=== PATIENT | female | born 1985 | race Caucasian/White ===

== ENCOUNTER 2016-06-01 06:44 | Emergency (ER) | payer BC ==
[2016-06-01] MEDS ORDERED: Ondansetron INJ* 2 MG/ML VIAL IV ONE (07:04)
--- NOTE | 2016-06-01 07:08 | ED ---
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 states vomitimg has slowed down but nausea persists. Severity: Severe Current Severity: Moderate Pain Intensity: 3 Associated Signs and Symptoms: Positive: Nausea, Vomiting, Diarrhea. Negative: Dizziness, Blood w/Stool, Fever Additional Signs & Symptoms: Positive: Other: - body aches Aggravating Factor(s): Food, Movement Alleviating Factor(s): Nothing, Position - better with HOB elevated - Allergy/Home Medications Allergies/Adverse Reactions: Allergies Allergy/AdvReac Type Severity Reaction Status Date / Time No Known Allergies Allergy Verified 06/01/16 06:51 PMH/Surg Hx/FS Hx/Imm Hx Previously Healthy: Yes Endocrine/Hematology History: Denies: Hx Blood Disorders Cardiovascular History: Denies: Hx Hypotension, Hx Hypertension Respiratory History: Denies: Hx Asthma GI History: Reports: Hx Gastroesophageal Reflux Disease Neurological History: Denies: Hx Headaches Psychiatric History: Denies: Hx Anxiety, Hx Depression Infectious Disease History: No Infectious Disease History: Denies: Traveled Outside the [place] in Last 30 Days - Family History Known Family History: Positive: None - Social History 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 Negative: Fever, Chills Eyes: Negative ENT: Negative Negative: Sore Throat Cardiovascular: Negative Negative: Chest Pain Respiratory: Negative Negative: Shortness Of Breath, Cough Positive: Vomiting, Diarrhea, Nausea. Negative: Abdominal Pain Genitourinary: Negative Musculoskeletal: Negative Skin: Negative Negative: Rash Neurological: Negative Negative: Headache Psychological: Normal All Other Systems Reviewed And Are Negative: Yes Physical Exam Triage Information Reviewed: Yes Vital Signs On Initial Exam: Initial Vitals Temp Pulse Resp BP Pulse Ox 98.8 F 108 20 143/68 99 06/01/16 06:48 06/01/16 06:48 06/01/16 06:48 06/01/16 06:48 06/01/16 06:48 Vital Signs Reviewed: Yes Appearance: Positive: Well-Appearing, Well-Nourished Skin: Positive: Warm, Skin Color Reflects Adequate Perfusion, Dry Respiratory/Lung Sounds: Positive: Clear to Auscultation Cardiovascular: Positive: Normal, RRR, Pulses are Symmetrical in both Upper and Lower Extremities Abdomen Description: Positive: Nontender, No Organomegaly, Soft Bowel Sounds: Positive: Present Neurological: Positive: Normal, Sensory/Motor Intact, Alert, Oriented to Person Place, Time Psychiatric: Positive: Normal Diagnostics - Vital Signs Vital Signs Temp Pulse Resp BP Pulse Ox 06/01/16 06:48 98.8 F 108 20 143/68 99 - Laboratory Lab Statement: Any lab studies that have been ordered have been reviewed, and results considered in the medical decision making process. Re-Evaluation - Re-Evaluation First Eval Change: Improved - no longer nausous, is eating and retaining clear liquids GIGU Course/Dx - Diagnoses Differential Diagnoses - Female: Dehydration, , Peptic Ulcer Disease - gastroenteritis Provider Diagnoses: Gastroenteritis Discharge - Discharge Plan Condition: Improved Disposition: HOME Prescriptions: Ondansetron ODT TAB* [Zofran Odt TAB*] 4 mg PO Q6H PRN #12 tab.odt PRN Reason: Nausea Patient Education Materials: Gastroenteritis (ED) Referrals: Yon Zaragoza MD [Primary Care Provider] - 2 Days (recheck in 2 days if no better) Additional Instructions: stay on clear liquid diet for 24h then advance diet to bland foods and gradually to regular diet use zofran as prescribed for nausea/vomiting return to ER if your symptoms worsen
[2016-06-01] MEDS ORDERED: NS 0.9% 1000 ML* 1,000 ML BOLUS SCH (07:15)
[2016-06-01 08:53] VITALS: BP 114/59
== END 2016-06-01 08:55 | disposition home or self-care (01) ==
LOC: ED 06:44
DX: K52.9 Noninfective gastroenteritis and colitis, unspecified (principal); R11.2 Nausea with vomiting, unspecified; R19.7 Diarrhea, unspecified; R53.83 Other fatigue
CPT/HCPCS: 96374; 99282; J2405

== ENCOUNTER 2017-03-16 16:03 | Emergency (ER) | payer BC ==
[2017-03-16 16:18] VITALS: BP 126/76
--- NOTE | 2017-03-16 16:25 | UC ---
Throat Pain/Nasal Jad HPI - HPI Summary HPI Summary: over 2 weeks of sinus congestion cough with green sputum - History of Current Complaint Chief Complaint: UCGeneralIllness Stated Complaint: SINUS PAIN,CONGESTION,COUGH Time Seen by Provider: 03/16/17 16:17 Hx Obtained From: Patient Hx Last Menstrual Period: 02/22/17 ?: No Onset/Duration: Gradual Onset, Lasting Weeks - 2 Severity: Moderate Pain Intensity: 7 Pain Scale Used: 0-10 Numeric Cough: Productive Associated Signs & Symptoms: Positive: Sinus Discomfort, Nasal Discharge - Allergies/Home Medications Allergies/Adverse Reactions: Allergies Allergy/AdvReac Type Severity Reaction Status Date / Time No Known Allergies Allergy Verified 03/16/17 16:08 Home Medications: Home Medications Control 03/16/17 [History] Sertraline HCl [Zoloft] 25 mg PO DAILY 03/16/17 [History Confirmed 03/16/17] PMH/Surg Hx/FS Hx/Imm Hx Previously Healthy: Yes Psychological History: Anxiety - Surgical History Surgical History: Yes Surgery Procedure, Year, and Place: eye surgery - Family History Known Family History: Positive: None - Social History Occupation: Employed Full-time Lives: Dormitory/Roommates Alcohol Use: Occasionally Substance Use Type: None Smoking Status (MU): Never Smoked Tobacco Review of Systems Constitutional: Negative Skin: Negative Eyes: Negative ENT: Nasal Discharge, Sinus Congestion, Sinus Pain/Tenderness Respiratory: Cough Cardiovascular: Negative Gastrointestinal: Negative Genitourinary: Negative Motor: Negative Neurovascular: Negative Musculoskeletal: Negative Neurological: Negative Psychological: Negative Is Patient Immunocompromised?: No All Other Systems Reviewed And Are Negative: Yes Physical Exam Triage Information Reviewed: Yes Appearance: Well-Appearing, No Pain Distress, Well-Nourished Vital Signs: Initial Vital Signs Temp 99.1 F 03/16/17 16:11 Pulse 86 03/16/17 16:11 Resp 16 03/16/17 16:11 BP 126/76 03/16/17 16:11 Pulse Ox 100 03/16/17 16:11 Vital Signs Reviewed: Yes Eye Exam: Normal Eyes: Positive: Conjunctiva Clear ENT Exam: Normal ENT: Positive: Normal ENT inspection, Hearing grossly normal, Pharynx normal, Nasal congestion, Nasal drainage, Sinus tenderness, Uvula midline. Negative: Tonsillar swelling, Tonsillar exudate, Trismus, Hoarse voice, Dental tenderness Dental Exam: Normal Neck exam: Normal Neck: Positive: Supple, Nontender, No Lymphadenopathy Respiratory Exam: Normal Respiratory: Positive: Chest non-tender, Lungs clear, Normal breath sounds, No respiratory distress, No accessory muscle use Cardiovascular Exam: Normal Cardiovascular: Positive: RRR, No Murmur, Pulses Normal, Brisk Capillary Refill Musculoskeletal Exam: Normal Musculoskeletal: Positive: Strength Intact, ROM Intact, No Edema Neurological Exam: Normal Neurological: Positive: Alert, Muscle Tone Normal Psychological Exam: Normal Skin Exam: Normal Throat Pain/Nasal Course/Dx - Course Assessment/Plan: Augmentin, Flonase increase fluids follow with pcp - Differential Dx/Diagnosis Provider Diagnoses: Sinusitis Discharge - Discharge Plan Condition: Stable Disposition: HOME Prescriptions: Amoxicillin/Clavulanate TAB* [Augmentin TAB 875*] 875 mg PO BID #20 tab Fluticasone NASAL SPRAY 50MCG* [Flonase NASAL SPRAY 50MCG*] 2 spray BOTH NARES DAILY #1 btl Patient Education Materials: Sinusitis (ED), How to Use Nasal [place] (ED) Referrals: Yon Zaragoza MD [Primary Care Provider] - If Needed
== END 2017-03-16 16:38 | disposition home or self-care (01) ==
LOC: UCEAST 16:03
DX: J32.9 Chronic sinusitis, unspecified (principal)
CPT/HCPCS: 99212; G0463

== ENCOUNTER 2017-06-07 17:29 | Emergency (ER) | payer BC ==
[2017-06-07 17:43] VITALS: BP 126/71
--- NOTE | 2017-06-07 19:17 | UC ---
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 Severity Initially: Mild Severity Currently: Moderate Pain Intensity: 0 Character: Cough: Nonproductive Associated Signs And Symptoms: Positive: Fever, Chills, URI, Nasal Congestion - Allergies/Home Medications Allergies/Adverse Reactions: Allergies Allergy/AdvReac Type Severity Reaction Status Date / Time No Known Allergies Allergy Verified 06/07/17 17:43 Home Medications: Home Medications Ferrous Sulfate [Iron] 1 tab PO DAILY 06/07/17 [History Confirmed 06/07/17] Norgestimate-Ethinyl Estradiol [Trinessa Tablet] 1 tab PO DAILY 06/07/17 [ History Confirmed 06/07/17] PMH/Surg Hx/FS Hx/Imm Hx Previously Healthy: Yes Psychological History: Depression - Surgical History Surgical History: Yes Surgery Procedure, Year, and Place: eye surgery - Family History Known Family History: Positive: None - Social History 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 Lives: With Family Alcohol Use: Occasionally Substance Use Type: None Smoking Status (MU): Never Smoked Tobacco Review of Systems Constitutional: Fever, Chills, Fatigue Skin: Negative Eyes: Negative ENT: Sore Throat, Sinus Congestion Respiratory: Cough Cardiovascular: Negative Gastrointestinal: Negative Neurological: Negative Psychological: Negative Is Patient Immunocompromised?: No All Other Systems Reviewed And Are Negative: Yes Physical Exam Triage Information Reviewed: Yes Appearance: Well-Appearing, No Pain Distress, Well-Nourished Vital Signs: Initial Vital Signs Temp 97.9 F 06/07/17 17:40 Pulse 76 06/07/17 17:40 Resp 18 06/07/17 17:40 BP 126/71 06/07/17 17:40 Pulse Ox 98 06/07/17 17:40 Vital Signs Reviewed: Yes Eyes: Positive: Conjunctiva Clear ENT: Positive: Pharyngeal erythema, Nasal congestion Neck: Positive: No Lymphadenopathy Respiratory: Positive: Lungs clear, Other: - harsh dry cough Cardiovascular Exam: Normal Cardiovascular: Positive: RRR Neurological Exam: Normal Psychological Exam: Normal Skin Exam: Normal UC Diagnostic Evaluation - Laboratory O2 Sat by Pulse Oximetry: 98 Respiratory Course/Dx - Differential Dx/Diagnosis Differential Diagnosis/HQI/PQRI: Bronchitis, Influenza, Sinusitis Provider Diagnoses: URI Discharge - Discharge Plan Condition: Stable Disposition: HOME Prescriptions: Azithromycin TAB* [Zithromax TAB (Z-EZRA) 250 mg #6 tabs] 2 tab PO .TODAY, THEN 1 DAILY #1 ezra Patient Education Materials: Upper Respiratory Infection (ED) Referrals: Yon Zaragoza MD [Primary Care Provider] - 2 Days (if no better) Additional Instructions: drink plenty of fluids Take z-ezra if cough no better in 24-48h use DayQuil and Nyquil as directed for cold symps
== END 2017-06-07 19:30 | disposition home or self-care (01) ==
LOC: UCEAST 17:29
DX: J06.9 Acute upper respiratory infection, unspecified (principal); F32.9 Major depressive disorder, single episode, unspecified
CPT/HCPCS: 87502; 87651; 99212; G0463

== ENCOUNTER 2018-01-29 07:06 | Emergency (ER) | payer BC ==
[2018-01-29 07:17] VITALS: BP 138/81
--- NOTE | 2018-01-29 07:37 | UC ---
Skin Complaint HPI - HPI Summary HPI Summary: Patient is a 33 y/o female who presents to the c/o pruritus. 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 Patient states the student was diagnosed with scabies. Last night her arms, legs, and back began to itch. Patient denies any srivastava, except for one small red bump on her foot. She is aware that her symptoms may be due to paranoia and dry skin, and not scabies but wanted to get checked. Patient has a dog at home, but states the dog has not been scratching itself and denies the possibility of fleas. Nobody else in the patients home has been itching themselves. pt without other complaints. No new products. no known allergies. denies Patients medication reviewed this visit. - History of Current Complaint Chief Complaint: UCSkin Time Seen by Provider: 01/29/18 07:22 Stated Complaint: EXPOSED TO SCABIES Hx Obtained From: Patient Hx Last Menstrual Period: 01/17/18 ?: No Onset/Duration: Sudden Onset, Lasting Hours - Last night, Still Present Skin Exposure Onset/Duration: Days Ago - Exposed to scabies for about 1 month Timing: Constant Current Severity: None Pain Intensity: 0 Pain Scale Used: 0-10 Numeric Location: Discrete - Arms, legs, back Character: Pruritus Aggravating Factor(s): Nothing Alleviating Factor(s): Nothing Associated Signs & Symptoms: Positive: Negative Related History: Other: - Possible scabies exposure - Allergy/Home Medications Allergies/Adverse Reactions: Allergies Allergy/AdvReac Type Severity Reaction Status Date / Time No Known Allergies Allergy Verified 01/29/18 07:17 Home Medications: Home Medications Multivitamin [Multivitamins] 1 tab PO DAILY 01/29/18 [History Confirmed 01/29/18 ] Review of Systems Constitutional: Negative Skin: Other - Pruritus All Other Systems Reviewed And Are Negative: Yes PMH/Surg Hx/FS Hx/Imm Hx Previously Healthy: Yes Endocrine History: Other Other Endocrine History: Anemia Cardiovascular History: Other Other Cardiovascular History: NEGATIVE: HTN - Surgical History Surgical History: Yes Surgery Procedure, Year, and Place: eye surgery, ear tubes - Family History Known Family History: Positive: Hypertension, Diabetes - Social History Occupation: Employed Full-time - 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 EOM intact and full ENT: Hearing grossly normal TM x 2 clear, mmoist, uvula midline, no exudate, no erythema Neck: Positive: Supple Respiratory: Positive: No respiratory distress, No accessory muscle use + CTA throughout no w/r Cardiovascular: RRR nl s1, s2 no m/r CBT <2 sec abd soft + BS nt/nd no guarding, no distension Musculoskeletal Exam: JOHNSON x 4 without difficulty Strength Intact, ROM Intact Neurological: Positive: Alert, + sensation throughout Psychological: Positive: Normal Response To Family Skin: Pt with dry appearing skin, no lesions, scabs, erythema no evidence of scabies or other wounds Triage Information Reviewed: Yes Vital Signs: Initial Vital Signs Temp 98.2 F 01/29/18 07:13 Pulse 86 01/29/18 07:13 Resp 18 01/29/18 07:13 BP 138/81 01/29/18 07:13 Pulse Ox 98 01/29/18 07:13 Course/Dx - Course Course Of Treatment: Pt presents as was exposed to scabies. Pt states since learning of contact diagnosis, has been intching. Pt without lesion. No reddness. no others with similar sx. Exam without concerning finding or apparent wounds. Pt requesting treatment. Will Rx permetherin. other hygiene precautions discussed. pt states understanding - Diagnoses Provider Diagnoses: scabies exposure Discharge - Sign-Out/Discharge Documenting (check all that apply): Patient Departure - Discharge All imaging exams completed and their final reports reviewed: No Studies - Discharge Plan Condition: Stable Disposition: HOME Prescriptions: Permethrin 5% CREAM* 1 applic TOPICAL SEE INSTRUCTIONS #1 tube Patient Education Materials: Scabies (ED) Referrals: Yon Zaragoza MD [Primary Care Provider] - Additional Instructions: - You have been given a prescription for permethrin cream - okay to use if you have evidence of expsoure - avoid overly hot showers as this can cause skin dryness - contact your doctor or return here with questions or concerns - Billing Disposition and Condition Condition: STABLE Disposition: Home - Attestation Statements Document Initiated by Scribe: Yes Documenting Scribe: Jacquelyn Alonzo Provider For Whom Scribe is Documenting (Include Credential): Debo Sykes MD Scribe Attestation: I, Jacquelyn Alonzo, scribed for Debo Sykes MD on 02/02/18 at 1525. Scribe Documentation Reviewed: Yes Provider Attestation: The documentation as recorded by the scribeJacquelyn accurately reflects the service I personally performed and the decisions made by me, Debo Sykes MD
== END 2018-01-29 07:50 | disposition home or self-care (01) ==
LOC: UCEAST 07:06
DX: Z20.7 Contact with and (suspected) exposure to pediculosis, acariasis and other infestations (principal); L29.9 Pruritus, unspecified
CPT/HCPCS: 99212; G0463

== ENCOUNTER 2018-06-16 16:54 | Emergency (ER) | payer BC ==
--- OUTSIDE RECORDS SUMMARY | 2018-06-16 16:59 | XMS REPORT | Continuity of Care Document ---
:1985 Author Organization [facility] Address [address], [place] [phone] Phone Care Team Providers Name Role Phone Prisca Cabello NP Unavailable Unavailable Allergies, Adverse Reactions, Alerts Substance Reaction Status No Known Allergies Active Medications Medication Instructions Dosage Effective Dates Status Comments (start - stop) TriNessa (28) 0.18 take 1 tablet by 1.00 tablet - Active mg(7)/0.215 mg(7)/0.25 oral route every mg(7)-35 mcg tablet day sulfamethoxazole 800 1 tab po bid x 3d - Active mg-trimethoprim 160 mg (#6) tablet FERROUS SULFATE Not Available - Active (unknown strength) Problems Condition Effective Dates (start - Clinical Status Comments stop) Encounter for surveillance of contraceptive pills Urinary tract infection, site not specified 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 Encounter for test, result negative Cervical high risk HPV DNA test positive Low grade intrepith lesion cyto smr crvx (LGSIL) Human immunodeficiency virus [HIV] - counseling Encounter for oth general cnsl and - advice on contraception Body mass index (BMI) 30.0-30.9, adult Encounter for surveillance of contraceptive pills Encntr screen for infections w sexl mode of transmiss 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 [place] [address], [place], [place], [address], [place], [address], [place], [place], [id number], [place] tel:[phone] [facility] Encounter for Ir[facility]o Cope. [facility] [place] surveillance of [address] Provider: [address], [place], [place], [address], [place], [address] [place], [address] infection, [place], , [place], specifiedEncntr [place], [place], [place], [address]. [id number], (general) [place] (routine) w tel:[phone] abnormal [phone] findings [facility] Encounter for [place] [facility] [place] test, [address] Provider: [facility] result [address], [place] negativeCervical [place], [place], [place], [facility], [address] high risk HPV [id number]. [address] DNA test tel:[phone] [address], [address], [place], [place] [address] [place], [place], [place], [address]. [id number], lesion cyto smr tel:[phone] [place] crvx (LGSIL) [id number] tel:[phone] [facility] Human [place] [facility]erring [facility] [place] immunodeficiency [address]. [address] Provider: [place] virus [HIV] [address], [place] counselingEncoun [place], [place], Raphaelidi [facility], [address] [place] [id number]. s, [address] general cnsl and tel:[phone] [address], [place], [place], [place] [address] [place], [place], [place], [address]. [id number], y mass index tel:[phone] [place] (BMI) 30.0-30.9, [id number] tel:[phone] adultEncounter [id number] for surveillance of contraceptive pillsEncntr screen for infections w sexl mode of transmissEncntr for jacquard plate maker exam (general) (routine) w/o abn findingsEncounte r for screening for human immunodeficiency virus Family History Family Member Diagnosis Age At Onset 1st degree relative No hx of coronary heart disease (female <65, male <55) Father Cardiovascular disease Paternal grandmother Diabetes (any type), first degree relative 1st degree relative No hx of venous thromboembolism 1st degree relative No hx of cancer of breast, colon, endometrium or ovary Immunizations Vaccine Date Status Comments No information Payers Payer name Insurance type Covered libertarian ID Authorization(s) [facility] [id number] Social History Type Description Quantity Date Captured Comments Alcohol Use Details Unknown Caffeine Use Details Unknown Tobacco Use Status Unknown Smoking Status Never smoker Sex Female Vital Signs Date / Height Weight BMI Pulse Blood Temperature Respiratory Body Head BMI Pulse Inhaled Time: Rate Pressure Rate Surface Circumference percentile Ox Ox Area No information Chief Complaint And Reason For Visit No information Reason For Referral Reason For Referral No information Plan Of Treatment Date Type Action Status No information History Of Present Illness Encounter Date Complaint History Of Present Illness No information Functional Status Date Functional Assessment No information Medications Administered Medication Instructions Dosage Effective Dates (start - stop) Status Comments No information Instructions Date Instruction Additional Information No information Assessments Type Assessment Date No information Goals Health Concern Goal Type Priority Status Date No information Medical Equipment Description Device [place] Device Identifier Effective Dates (start - stop ) Status No information Mental Status Date Cognitive Assessment No information Health Concerns Observation Date No information Concern Status Date No information
--- OUTSIDE RECORDS SUMMARY | 2018-06-16 16:59 | XMS REPORT | Continuity of Care Document ---
:1985 Author Organization [facility] Address [address], [place] [id number] Phone Care Team Providers Name Role Phone Prisca Cabello NP Unavailable Unavailable Allergies, Adverse Reactions, Alerts Substance Reaction Status No Known Allergies Active Medications Medication Instructions Dosage Effective Dates Status Comments (start - stop) Issa (28) take 1 tablet by - Active Sorry-I sent 0.18 mg(7)/0.215 oral route every this yesterday mg(7)/0.25 day, skipping and didn't mg(7)-35 mcg placebo week for realize she tablet continuous cycling could have a year supply. 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 [place] [address], [place], [place], [address], [place], [address], [place], [place], [id number], [place] tel:[phone] [facility]. [facility] [place] [address], [place], [place], [address], [place], [address], [place], [place], [id number], [place] tel:[phone] [facility] Encounter for Irineo Cope. Referring [facility] [place] surveillance of [address] Provider: [address] contrace[address], [place], [place], [address], [address] [place], 620 tract infection, [place]. [address] site not St, , [place], specifiedEncntr [place], [place], [place], [address]. [id number], (general) [place] (routine) w tel:[phone] abnormal [phone] findings [facility] Encounter for [place] Referring [facility] [place] test, 0-201 Nay. [address] Provider: [place] result [address], [place] negativeCervical [place], [place], [place], [facility], 620 high risk HPV [address]. [address] DNA test tel:[phone] [address], St, [place], positiveLow [address] [place], [place], [place], [address]. [id number], lesion cyto smr tel:[phone] [place] crvx (LGSIL) [id number] tel:[phone] [facility] Human Eren Referring [facility] [place] immunodeficiency 3-201 Isatu. [address] Provider: [place] virus [HIV] [address], [place] counselingEncoun [place], [place], [place], [address] [place] [address]. s, [address] general cnsl and tel:[phone] [address], St, [place], [place] [address] [place], [place], [place], [address]. [id number], y mass index tel:[phone] [place] (BMI) 30.0-30.9, [id number] tel:[phone] adultEncounter [id number] for surveillance of contraceptive pillsEncntr screen for infections w sexl mode of transmissEncntr for photographic supervisor exam (general) (routine) w/o abn findingsEncounte r [...] information Payers Payer name Insurance type Covered constitution party ID Authorization(s) [facility] [id number] Social History Type Description Quantity Date Captured [...] Date No information Medical Equipment Description Device [place] Device Identifier Effective Dates (start - stop ) Status No information Mental Status Date Cognitive Assessment No information Health Concerns Observation Date No information Concern Status Date No information
--- OUTSIDE RECORDS SUMMARY | 2018-06-16 16:59 | XMS REPORT | Continuity of Care Document ---
:1985 Author Organization 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 [facility] [place] [address], [place], [place], [address], [place], [address], [place], [place], [id number], [place] tel:[phone] [facility] Encounter for Irineo Cope. Referring [facility] [place] surveillance of [address] Provider: [place] contrace[address], [place], [place], [address], [place], [address] [place], 620 tract infection, [place]. [address] site not [address], , [place], specifiedEncntr [place], [place] [address]. [id number], (general) [place] (routine) w tel:[phone] abnormal [phone] findings [facility] Encounter for [place] Referring [facility] [place] test, 0-201 Nay. [address] Provider: [facility] result [address], Nay [place] negativeCervical [place], [place], [place], [facility], 620 high risk HPV [address]. [address] DNA test tel:[phone] [address], [address], [place], positiveLow [address] [place], [place], [address]. [id number], lesion cyto smr tel:[phone] [place] crvx (LGSIL) [id number] tel:[phone] [facility] Raphminnie Referring [facility] [place] immunodeficiency 3-201 Isatu. [address] Provider: [place] virus [HIV] [address], [place] counselingEncoun [place], [place], Raphael[place] [facility], [address] [place] [address]. s, [address] general cnsl and tel:[phone] [address] [place], [place], [place] [address] [place], [place], [place], [address]. [id number], y mass index tel:[phone] [place] (BMI) 30.0-30.9, [id number] tel:[phone] adultEncounter 004293 for surveillance of contraceptive pillsEncntr screen for infections w sexl mode of transmissEncntr for company driver exam (general) (routine) w/o abn findingsEncounte r [...] Insurance type Covered constitution party ID Authorization(s) [facility] [id number] Social History Type Description Quantity Date Captured [...] Date No information Medical Equipment Description Device [place] Device Identifier Effective Dates (start - stop ) Status No information Mental Status Date Cognitive Assessment No information Health Concerns Observation Date No information Concern Status Date No information
--- OUTSIDE RECORDS SUMMARY | 2018-06-16 16:59 | XMS REPORT | Continuity of Care Document ---
:1985 External Reference #:[id number] Author Name Debo Jensen DO Address [address] [facility] [address] [place] [address] Care Team Providers Name Role Phone Mikey Debo Gabriel DO Primary Care Physician Unavailable Payers Type Date Identification Numbers Payment Provider Subscriber Effective: Policy Number: BS Tate Correa/MX Valentine Gallardo 2016 [id number] Group Number: [employer] [address] [address] Group Name: [id number] [id number] PayID: [id number] Expires: 2016 Policy Number: [id number] [place]Um[employer] (Old) Valentine Gallardo Group Name: [id number] [address] PayID: [id number] [place] [address] Advance Directives Description No Information Available Problems Description No Information Family History Date Family Member(s) Problem(s) Comments Father Unknown Mother No Current Problems Onset: (age 75 Paternal Grandfather Myocardial Infarction Years) Paternal Grandmother due to MA () - in her 70s : (age Maternal Grandfather due to COPD Complications of 81 Years) : (age Maternal Grandmother due to Lung 64 Years) Cancer Social History Type Date Description Comments Sex Unknown ETOH Use Occasionally consumes alcohol twice a week Tobacco Use Start: Unknown Patient has never smoked Smoking Status Reviewed: 07/24/16 Patient has never smoked Allergies, Adverse Reactions, Alerts Description No Known Drug Allergies Medications Medication Date Status Form Strength Qnty SIG Indications Ordering Provider Fluticasone 05/15/ Active Suspension 50mcg/Act 16unit spray 2 Debo Propionate 2018 s sprays in Mikey,DO each nostril at bedtime Buspirone HCL 04/03/ Active Tablets 5mg 60tabs take one Debo 2018 tablet by Mikey,DO mouth daily increase to twice a day as needed. Ferrous 01/28/ Active Tablets 324(38Fe) 30tabs 1 by Debo Gluconate 2016 mg mouth Mikey,DO every day Vitamin B-12 07/25/ Active Tablets 1000mcg 30tabs 1 by Debo 2015 mouth Mikey,DO every day Magnesium 07/20/ Active Tablets 400(240Mg) 30tabs 1 by Debo Oxide 2016 mg mouth Mikey,DO once daily Apri 00/ Active Tablets 0.15-30mg- 1 by Unknown 0000 mcg mouth every day Escitalopram 02/27/ Hx Tablets 5mg 30tabs 1 po Debo Oxalate 2018 - daily Mikey,DO 2017 Escitalopram 07/26/ Hx Tablets 10mg 30tabs Take One Debo Oxalate 2016 - Tablet By Mikey,DO 02/26/ Mouth 2018 Every Day Ferrous 07/23/ Hx Tablets 324(38Fe) 30tabs 1 by Debo Gluconate 2015 - mg mouth Mikey,DO 01/25/ every day 2015 Vitamin B12 07/20/ Hx Tablets 1 by Debo 2015 - mouth Mikey,DO 07/25/ every day 2015 Omeprazole 06/12/ Hx Capsules DR 20mg 30caps 2 by Debo 2015 - mouth Mikey,DO 03/26/ every day 2016 Seasonique 06/12/ Hx Tablets 0.15-0.03& 1tabs as Debo 2016 - 0.01mg directed Mikey,DO 01/25/ daily 2015 Escitalopram 06/12/ Hx Tablets 5mg take 2 by Debo Oxalate 2015 - mouth Mikey,DO 06/12/ every day 2015 Escitalopram 06/12/ Hx Tablets 5mg 60tabs 2 tabs p Debo Oxalate 2015 - o daily Mikey,DO 2016 Medications Administered in Office Medication Date Status Form Strength Qnty SIG Indications Ordering Provider Immunization Administered Injection Debo Adminstration,1 018 Mikey, Vaccine/Toxoid Immunizations CPT Code Status Date Vaccine Lot # [id number] Given 04/03/2018 Influenza Virus Vaccine, Quadrivalent (Cciiv4), [id number] Derived From Cell [id number] Refused 02/27/2018 Influenza Virus Vaccine, Quadrivalent (Cciiv4), Derived From Cell [id number] Refused 03/26/2017 Influenza Vaccine Quadrivalent Preser/Antibiotic Free Im Use Vital Signs Date Vital Result Comment 05/15/2018 3:03pm BP Systolic 110 mmHg BP Diastolic 78 mmHg Heart Rate 84 /min Body Temperature 98.6 F Height 59.25 inches 4'11.25" Weight 145.50 lb O2 % BldC Oximetry 98 % RM Air BMI (Body Mass Index) 29.1 kg/m2 04/03/2018 3:02pm Heart Rate 93 /min Height 59.25 inches 4'11.25" Weight 147.00 lb O2 % BldC Oximetry 98 % BMI (Body Mass Index) 29.4 kg/m2 02/27/2018 2:29pm BP Systolic 114 mmHg RT Arm BP Diastolic 82 mmHg RT Arm Heart Rate 82 /min Height 59.25 inches 4'11.25" Weight 147.50 lb O2 % BldC Oximetry 98 % RM Air BMI (Body Mass Index) 29.5 kg/m2 03/26/2017 10:52am BP Systolic 110 mmHg BP Diastolic 70 mmHg Heart Rate 98 /min Height 59.25 inches 4'11.25" Weight 149.12 lb O2 % BldC Oximetry 100 % RM Air BMI (Body Mass Index) 29.9 kg/m2 07/26/2016 3:13pm BP Systolic 124 mmHg BP Diastolic 68 mmHg Heart Rate 74 /min Height 59.25 inches 4'11.25" Weight 148.00 lb O2 % BldC Oximetry 98 % BMI (Body Mass Index) 29.6 kg/m2 01/26/2016 1:55pm BP Systolic 128 mmHg BP Diastolic 60 mmHg Heart Rate 100 /min Height 59.25 inches 4'11.25" Weight 144.00 lb BMI (Body Mass Index) 28.8 kg/m2 07/21/2015 2:06pm BP Systolic 110 mmHg BP Diastolic 60 mmHg Heart Rate 100 /min Height 59.25 inches 4'11.25" Weight 136.25 lb BMI (Body Mass Index) 27.3 kg/m2 06/12/2015 1:05pm BP Systolic 128 mmHg BP Diastolic 70 mmHg Heart Rate 104 /min Height 59.25 inches 4'11.25" Weight 131.12 lb BMI (Body Mass Index) 26.3 kg/m2 Results Test Date Facility Test Result H/L Range Note Total Iron Binding 02/27/2018 [facility] Iron (Fe) 94 g/dL N 50-170 [facility] [address] [place] [address] [phone] Total Iron Binding Capacity 475 g/dL High 250-450 Percent Saturation 19.8 % N 13.2-45.0 Laboratory test 02/27/2018 [facility] Ferritin 44 NG/ML N 8 -252 finding [address] [place] [id number] [phone] Vitamin B12 Level 285.0 pg/mL N 247-911 1 Complete Blood 02/27/2018 [facility], WBC 7.5 x10^3/UL 4.1- 10.9 Count Correctional Case Manager: Dr Isra Mckinney [place], [place] [id number] [phone] RBC 4.65 x10^6/UL 4.20-6.30 HGB 13.7 g/dL 12.0-18.0 HCT 41.6 % 37.0-51.0 MCV 89.4 fL 80.0-97.0 MCH 29.5 pg 26.0-32.0 MCHC 33.0 g/dL 31.0-38.0 RDW 12.9 % 11.6-13.7 PLT 262 x10^3/UL 140-440 MPV 8.3 FL 7.8-11.0 Lymph % 24.1 % 10.0-58.5 Mid% 6.2 % 1.7-9.3 Neut % 69.7 % 37.0-92.0 Lymph# 1.8 x10^3/UL 0.6-4.1 Mid# 0.5 x10^3/UL 0.1-0.6 Neut # 5.2 x10^3/UL 2.0-7.8 Magnesium, Serum 02/27/2018 [facility], Magnesium 1.8 mg/dL 1.8-2.4 Correctional Case Manager: [place] [address] [phone] Comprehensive Chem 02/27/2018 [facility], Serum Glucose 83 mg/ dL 74-99 2 Profile Correctional Case Manager: [place] [address] [phone] BUN 13 mg/dL 7-18 Creatinine 0.8 mg/dL 0.6-1.3 Sodium 136 mEq/L 136-145 Potassium 3.4 mEq/L Low 3.5-5.1 3 Chloride 102 mEq/L 98-107 Carbon Dioxide 24 mEq/L 21-32 Calcium 8.7 mg/dL 8.5-10.1 Alk. Phosphatase 59 mg/dL 46-116 Total Bilirubin 0.3 mg/dL 0.2-1.0 Ast (Sgot) 18 U/L 15-37 Alt (SGPT) 23 U/L 12-78 Albumin 3.1 g/dL Low 3.4-5.0 4 Total Protein 7.2 g/dL 6.4-8.2 A/G Ratio 0.8 CALC Low 1.0-1.9 GFR >60 mL/min >=60 GFR >60 mL/min >=60 5 TSH 02/27/2018 [facility], TSH 0.82 mIU/mL 0.36-3.74 Correctional Case Manager: [place] [address] [phone] Total Iron 03/26/2017 [facility] Iron (Fe) 47 g/dL Low 50 -170 Binding [facility] [address] [place] [address] [phone] Total Iron Binding Capacity 569 g/dL High 250-450 Percent Saturation 8.3 % Low 13.2-45.0 Laboratory test 03/26/2017 [facility] Vitamin B12 321 pg/mL N 247-911 6 finding [address] [place] [address] [phone] Comprehensive Chem 03/26/2017 [facility], Serum Glucose 92 mg/ dL 74-99 7 Profile Correctional Case Manager: [place] [address] [phone] BUN 11 mg/dL 7-18 Creatinine 0.7 mg/dL 0.6-1.3 Sodium 139 mEq/L 136-145 Potassium 3.9 mEq/L 3.5-5.1 Chloride 107 mEq/L 98-107 Carbon Dioxide 23 mEq/L 21-32 Calcium 8.5 mg/dL 8.5-10.1 Alk. Phosphatase 67 mg/dL 46-116 Total Bilirubin 0.3 mg/dL 0.2-1.0 Ast (Sgot) 20 U/L 15-37 Alt (SGPT) 23 U/L 12-78 Albumin 3.3 g/dL Low 3.4-5.0 Total Protein 7.2 g/dL 6.4-8.2 A/G Ratio 0.8 CALC Low 1.0-1.9 GFR >60 mL/min >=60 GFR >60 mL/min >=60 8 Lipid Profile 03/26/2017 [facility] Cholesterol 206 mg/dL High 131-200 Correctional Case Manager: [place] [address] [phone] Triglycerides 48 mg/dL 30-150 HDL Cholesterol 76 mg/dL High 35-60 LDL (Calculated) 120 CALC 50-159 Complete Blood 07/26/2016 [facility], WBC 8.0 x10^3/UL 4.1- 10.9 Count Correctional Case Manager: [place] [address] [phone] RBC 4.61 x10^6/UL 4.20-6.30 HGB 13.1 g/dL 12.0-18.0 HCT 39.6 % 37.0-51.0 MCV 85.9 fL 80.0-97.0 MCH 28.5 pg 26.0-32.0 MCHC 33.2 g/dL 31.0-38.0 RDW 13.3 % 11.6-13.7 PLT 336 x10^3/UL 140-440 MPV 7.9 FL 7.8-11.0 Lymph % 30.4 % 10.0-58.5 Mid% 7.3 % 1.7-9.3 Neut % 62.3 % 37.0-92.0 Lymph# 2.4 x10^3/UL 0.6-4.1 Mid# 0.6 x10^3/UL 0.1-0.6 Neut # 5.0 x10^3/UL 2.0-7.8 Laboratory test 07/26/2016 [facility] Vitamin B12 271 pg/mL N 247-911 9 finding [address] [place] [address] [phone] Total Iron 07/26/2016 [facility] Iron (Fe) 46 g/dL Low 50 -170 Binding [facility] [address] [place] [address] [phone] Total Iron Binding Capacity 536 g/dL High 250-450 Percent Saturation 8.6 % Low 13.2-37.4 TSH 01/26/2016 [facility], TSH 0.82 mIU/mL 0.36-3.74 Correctional Case Manager: [place] [address] [phone] Magnesium, Serum 01/26/2016 [facility], Magnesium 1.8 mg/dL 1.8-2.4 Correctional Case Manager: [place] [address] [phone] Complete Blood 01/26/2016 [facility], WBC 6.7 x10^3/UL 4.1- 10.9 Count Correctional Case Manager: [place] [address] [phone] RBC 4.74 x10^6/UL 4.20-6.30 HGB 12.4 g/dL 12.0-18.0 HCT 38.3 % 37.0-51.0 MCV 80.8 fL 80.0-97.0 MCH 26.2 pg 26.0-32.0 MCHC 32.5 g/dL 31.0-38.0 RDW 13.9 % High 11.6-13.7 PLT 300 x10^3/UL 140-440 MPV 8.1 FL 7.8-11.0 Lymph % 31.8 % 10.0-58.5 Mid% 5.7 % 1.7-9.3 Neut % 62.5 % 37.0-92.0 Lymph# 2.1 x10^3/UL 0.6-4.1 Mid# 0.4 x10^3/UL 0.1-0.6 Neut # 4.2 x10^3/UL 2.0-7.8 Laboratory test 01/26/2016 [facility] Vitamin B12 343 pg/mL N 247-911 10 finding [address] [place] [address] [phone] Total Iron 01/26/2016 [facility] Iron (Fe) 32 g/dL Low 50 -170 Binding [facility] [address] [place] [address] [phone] Total Iron Binding Capacity 644 g/dL High 250-450 Percent Saturation 5.0 % Low 13.2-37.4 Laboratory test 07/31/2015 [facility] Endomysial Keely Negative N Negative 11 finding [address] [place] [address] [phone] Tissue Transglutaminase IgA <2 U/mL N 0-3 12 Immunoglobulin A 64.4 mg/dL Low 70-400 Total Iron 07/21/2015 [facility] Iron (Fe) 39 g/dL Low 50 -170 Binding [facility] [address] [place] [address] [phone] Total Iron Binding Capacity 655 g/dL High 250-400 Percent Saturation 6.0 % Low 13.2-37.4 Laboratory test 07/21/2015 [facility] Vitamin B12 239 pg/mL Low 247-911 13 finding [address] [place] [address] [phone] Magnesium, 07/21/2015 [facility] Magnesium 1.7 mg/dL Low 1.8-2.4 Serum Correctional Case Manager: Dr Isra Mckinney [place] [id number] [phone] Complete Blood 06/12/2015 [facility] WBC 6.7 4.1-10.9 Count Correctional Case Manager: Dr Isra Mckinney x10^3/[place] [address] [phone] RBC 4.59 x10^6/UL 4.20-6.30 HGB 12.5 g/dL 12.0-18.0 HCT 36.1 % Low 37.0-51.0 MCV 78.6 fL Low 80.0-97.0 MCH 27.2 pg 26.0-32.0 MCHC 34.6 g/dL 31.0-38.0 RDW 12.8 % 11.6-13.7 PLT 350 x10^3/UL 140-440 MPV 7.7 FL Low 7.8-11.0 Lymph % 33.2 % 10.0-58.5 Mid% 8.1 % 1.7-9.3 Neut % 58.7 % 37.0-92.0 Lymph# 2.2 x10^3/UL 0.6-4.1 Mid# 0.6 x10^3/UL 0.1-0.6 Neut # 3.9 x10^3/UL 2.0-7.8 Basic Metabolic 06/12/2015 [facility], Serum Glucose 100 mg/ dL 74-106 Panel Correctional Case Manager: Dr Isra Mckinney [place], [place] [id number] [phone] BUN 11 mg/dL 7-18 Creatinine 0.8 mg/dL 0.6-1.3 Sodium 141 mEq/L 136-145 Potassium 4.1 mEq/L 3.5-5.1 Chloride 106 mEq/L 98-107 Carbon Dioxide 19 mEq/L Low 21-32 Calcium 8.5 mg/dL 8.5-10.1 BUN/Creat Ratio 13.8 CALC GFR >60 mL/min >=60 GFR >60 mL/min >=60 14 TSH 06/12/2015 [facility], TSH 0.69 mIU/mL 0.36-3.74 Correctional Case Manager: [place] [address] [phone] 1 VITAMIN B12 NORMAL RANGE NORMAL 247 - 911 PG/ML INDETERMINATE 211 - 246 PG/ML DEFICIENT LESS THAN 211 PG/ML 2 * 100-125 mg/dl Pre-Diabetes/Fasting >126 mg/dl Diabetes/Fasting 3 RESULT VERIFIED 4 RESULT VERIFIED 5 CHRONIC KIDNEY DISEASE STAGING PER NKF STAGE I & II GFR>=60 NORMAL TO MILDLY DECREASED STAGE III GFR 30-59 MODERATELY DECREASED STAGE IV GFR 15-29 SEVERELY DECREASED STAGE V GFR <15 VERY LITTLE GFR LEFT ESRD GFR <15 ON APPLICATIONS COORDINATOR 6 VITAMIN B12 NORMAL RANGE NORMAL 247 - 911 PG/ML INDETERMINATE 211 - 246 PG/ML DEFICIENT LESS THAN 211 PG/ML 7 * 100-125 mg/dl Pre-Diabetes/Fasting >126 mg/dl Diabetes/Fasting 8 CHRONIC KIDNEY DISEASE STAGING PER NKF STAGE I & II GFR>=60 NORMAL TO MILDLY DECREASED STAGE III GFR 30-59 MODERATELY DECREASED STAGE IV GFR 15-29 SEVERELY DECREASED STAGE V GFR <15 VERY LITTLE GFR LEFT ESRD GFR <15 ON APPLICATIONS COORDINATOR 9 VITAMIN B12 NORMAL RANGE NORMAL 247 - 911 PG/ML INDETERMINATE 211 - 246 PG/ML DEFICIENT LESS THAN 211 PG/ML 10 VITAMIN B12 NORMAL RANGE NORMAL 247 - 911 PG/ML INDETERMINATE 211 - 246 PG/ML DEFICIENT LESS THAN 211 PG/ML 11 Performed at: RN - [facility] [address] [id number] Correctional Case Manager: Bianca Aguero MD, Phone: [phone] 12 Negative 0 - 3 Weak Positive 4 - 10 Positive >10 . Tissue Transglutaminase (tTG) has been identified as the endomysial antigen. Studies have demonstr- ated that endomysial IgA antibodies have over 99% specificity for gluten sensitive enteropathy. 13 VITAMIN B12 NORMAL RANGE NORMAL 247 - 911 PG/ML INDETERMINATE 211 - 246 PG/ML DEFICIENT LESS THAN 211 PG/ML 14 CHRONIC KIDNEY DISEASE STAGING PER NKF STAGE I & II GFR>=60 NORMAL TO MILDLY DECREASED STAGE III GFR 30-59 MODERATELY DECREASED STAGE IV GFR 15-29 SEVERELY DECREASED STAGE V GFR <15 VERY LITTLE GFR LEFT ESRD GFR <15 ON APPLICATIONS COORDINATOR Procedures Description No Information Available Encounters Type Date Location Provider Dx Diagnosis Office Visit 04/03/2018 Choco Jensen DO F41.9 Anxiety disorder, [facility] unspecified D50.9 Iron deficiency anemia, unspecified D51.9 Vitamin B12 deficiency anemia, unspecified E83.42 Hypomagnesemia Z23 Encounter for immunization Office Visit 02/27/2018 2:30p Choco Jensen DO D50.9 Iron deficiency [facility] anemia, unspecified D51.9 Vitamin B12 deficiency anemia, unspecified E04.9 Nontoxic goiter, unspecified E83.42 Hypomagnesemia F41.9 Anxiety disorder, unspecified Office Visit 03/26/2017 11:00a Choco Jensen DO D50.9 Iron deficiency [facility] anemia, unspecified D51.9 Vitamin B12 deficiency anemia, unspecified Z13.220 Encounter for screening for lipoid disorders Office Visit 07/26/2016 3:15p Choco Jensen DO D50.9 Iron deficiency [facility] anemia, unspecified D51.9 Vitamin B12 deficiency anemia, unspecified E83.42 Hypomagnesemia R12 Heartburn Office Visit 01/26/2016 2:00p Choco Debo Jensen DO E04.9 Nontoxic goiter, [facility] unspecified D50.9 Iron deficiency anemia, unspecified D51.9 Vitamin B12 deficiency anemia, unspecified R63.5 Abnormal weight gain E83.42 Hypomagnesemia Office Visit 07/21/2015 1:45p [facility] DO D64.9 Anemia, [facility] unspecified M54.2 Cervicalgia R25.2 Cramp and spasm Office Visit 06/12/2015 1:00p [facility] gaines DO M54.2 [facility]ical[facility] P.[facility] F41.9 Anxiety disorder, unspecified R23.1 Pallor G56.01 Carpal tunnel syndrome, right upper limb Plan of Treatment Future Appointment(s):11/20/2018 2:00 pm - Debo Jensen DO at [facility]05/15/2018 - Debo Jensen DOJ30.9 Allergic rhinitis, irhspozvbrcS40.9 Anxiety disorder, giuqguuztomD28.9 Iron deficiency anemia, ubkpkebcqwgP18.9 Vitamin B12 deficiency anemia, unspecifiedAllNew Medication: Fluticasone Propionate 50 mcg/Act - spray 2 sprays in each nostril at bedtime
--- OUTSIDE RECORDS SUMMARY | 2018-06-16 16:59 | XMS REPORT | Continuity of Care Document ---
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 [facility] [place] [address], [place], [place], [address], [place], [address], [place], [place], [id number], [place] tel:[phone] [facility]. [facility] [place] [address], [place], [place], [address], [place], [address], [place], [place], [id number], [place] tel:[phone] [facility] Encounter for Irineo Cope. Referring [facility] [place] surveillance of [address] Provider: [facility] contraceptive [address], [place], [place], [address], [place], 620 [place], 620 tract infection, [place]. [address] site not St, , [place], specifiedEncntr [place], [place], [place], [address]. [id number], (general) [place] (routine) w tel:[phone] abnormal [phone] findings [facility] Encounter for [place] Referring [facility] [place] test, 0-201 Nay. [address] Provider: [facility] result [address], [place] negativeCervical [place], [place], [place], [facility], 620 high risk HPV [address]. [address] DNA test tel:[phone] [address], St, [place], [place]Low [address] [place], [place], [place], [address]. [id number], lesion cyto smr tel:[phone] [place] crvx (LGSIL) [id number] tel:[phone] [facility] Human Eren Referring [facility] [place] immunodeficiency 3-201 Isatu. [address] Provider: [facility] virus [HIV] [address], [place] counselingEncoun [place], [place], [place], [address] [place] [address]. s, [address] general cnsl and tel:[phone] [address], St, [place], [place] [address] [place], [place], [place], [address]. [id number], y mass index tel:[phone] [place] (BMI) 30.0-30.9, [id number] tel:[phone] adultEncounter [phone] for surveillance of contraceptive pillsEncntr screen for infections w sexl mode of transmissEncntr for merchandise examiner exam (general) (routine) w/o abn findingsEncounte r [...] information Payers Payer name Insurance type Covered green party ID Authorization(s) [facility] [id number] Social History Type Description Quantity Date Captured [...] Plan Of Treatment Date Type Action Status Appointment TERE CASTELLANOS BOOKED History Of Present Illness Encounter Date Complaint History Of Present Illness No information Functional Status Date Functional Assessment No information Medications Administered Medication Instructions Dosage Effective Dates (start - stop) Status Comments No information Instructions Date Instruction Additional Information No information Assessments Type Assessment Date No information Goals Health Concern Goal Type Priority Status Date No information Medical Equipment Description Device [place] Device Identifier Effective Dates (start - stop ) Status No information Mental Status Date Cognitive Assessment No information Health Concerns Observation Date No information Concern Status Date No information
--- OUTSIDE RECORDS SUMMARY | 2018-06-16 16:59 | XMS REPORT | Continuity of Care Document ---
:1985 Author Organization [facility] Address [address] [place], [place] [phone] Phone Care Team Providers Name Role Phone Prisca Cabello NP Unavailable Unavailable Allergies, Adverse Reactions, Alerts Substance Reaction Status No Known Allergies Active Medications Medication Instructions Dosage Effective Status Comments Dates (start - stop) Issa Turner) take 1 tablet by - Active Sorry-I sent 0.18 oral route every this yesterday mg(7)/0.215 day, skipping and didn't mg(7)/0.25 placebo week for realize she mg(7)-35 mcg continuous could have a tablet cycling year supply. 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 [facility] [place] [address], [place], [place], [address], [place], [address], [place], [place], [id number], [place] tel:[phone] [facility]. [facility] [place] [address], [place], [place], [address], [place], [address] , [place], [place], [id number], [place] tel:[phone] [facility] Encounter for Irineo Cope. Referring [facility] surveillance of [address] Provider: [facility] contraceptive 9 , [place], [place], [address], [place], 620 [place], 620 tract infection, [place]. [address] [place] [address] [place] site not [address], , [place], specifiedEncntr [place], [place], [address]. [id number], (general) [place] (routine) w tel:[phone] abnormal [phone] findings [facility] for [place] [facility] Nay. [address] Provider: [facility] result [address], [place] negativeCervical [place], [place], [place], [place], 620 high risk HPV [address]. [address] [place] DNA test tel:[phone] [address], St, [place], [place]Low [address] [place], [place], [place], [address]. [id number], lesion cyto smr tel:[phone] [place] crvx (LGSIL) [id number] tel:[phone] [facility] Human Tadeocelsa [facility] Isatu. [address] Provider: [place] virus [HIV] [address], [place] counselingEncoun [place], [place], Ángel [facility], [address] [place] [address]. s, [address] [place] general cnsl and tel:[phone], St, [place], [place] [address] [place], [place], [place], [address]. [id number], y mass index tel:[phone] [place] (BMI) 30.0-30.9, [id number] tel:[phone] adultEncounter [phone] for surveillance of contraceptive pillsEncntr screen for infections w sexl mode of transmissEncntr for explosive ordnance handler exam (general) (routine) w/o abn findingsEncounte r [...] name Insurance type Covered libertarian ID Authorization(s) [facility] [employer] [id number] Social History Type Description Quantity Date Captured Comments Sex Female Vital Signs Date / Height [...] Date No information Medical Equipment Description Device [place] Device Identifier Effective Dates (start - stop ) Status No information Mental Status Date Cognitive Assessment No information Health Concerns Observation Date No information Concern Status Date No information
--- OUTSIDE RECORDS SUMMARY | 2018-06-16 16:59 | XMS REPORT | Continuity of Care Document ---
:1985 Author Organization [facility] Address [address], [place] [phone] Phone Care Team Providers Name Role Phone Prisca Cabello NP Unavailable Unavailable Allergies, Adverse Reactions, Alerts Substance Reaction Status No Known Allergies Active Medications Medication Instructions Dosage Effective Status Comments Dates (start - stop) Silviamahamedglendy (28) 0.18 take 1 tablet by - Active Sorry-I sent mg(7)/0.215 oral route this mg(7)/0.25 mg(7)-35 every day, yesterday and mcg tablet skipping placebo didn't week for realize she continuous could have a cycling year supply. So I'm resending it with refills FERROUS SULFATE Not Available - Active (unknown strength) Issa (28) 0.18 take 1 tablet by - No Longer Pt out of mg(7)/0.215 oral route Active pills and mg(7)/0.25 mg(7)-35 every day, needs to pick mcg tablet skipping placebo this pack up week for before Jun as continuous she does cycling continuous cycling Silviacirilo (28) 0.18 take 1 tablet by 1.00 tablet - No Longer mg(7)/0.215 oral route Active mg(7)/0.25 mg(7)-35 every day mcg tablet sulfamethoxazole 800 1 tab po bid x - No Longer mg-trimethoprim 160 3d (#6) Active mg tablet Problems Condition Effective Dates (start - Clinical Status Comments stop) Encounter for surveillance of contraceptive pills Urinary tract infection, site not specified 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 [address] [place] [address], [place], [address], [place], [address] [place], [place], [id number], [place] tel:[phone] [facility]. [facility] [address] [facility], [place], [address], [place], [address] [place], [place], [id number], [place] tel:[phone] [facility] Encounter for Irineo Cope. Referring [facility] surveillance of [address] Provider: [facility] contraceptive [address] [facility], [place], [address], [place], 620 [place], 620 tract infection, [place]. W [address] W [address] site not St, [facility], specifiedEncntr [place], [place], [place], [address]. [id number], (general) [place] (routine) w tel:[phone] abnormal [phone] findings [facility] Encounter for [place] Referring [facility] test, 0-201 Nay. [address] Provider: [facility] result [address], [place] negativeCervical [place], [place], [place], [place], 620 high risk HPV [address]. [address] DNA test tel:[phone], St, [place], [place]Low [address] [place], [place], [place], [address]. [id number], lesion cyto smr tel:[phone] [place] crvx (LGSIL) [id number] tel:[phone] [facility] Eren Referring [facility] [place] immunodeficiency 3-201 Isatu. [address] Provider: [place] virus [HIV] [address], [place] counselingEncoun [place], [place], Ángel [facility], [address] [place] [address]. s, [address] general cnsl and tel:[phone], St, [place], [place] [address] [place], [place], [place], [address]. [id number], y mass index tel:[phone] [place] (BMI) 30.0-30.9, [id number] tel:[phone] adultEncounter [phone] for surveillance of contraceptive pillsEncntr screen for infections w sexl mode of transmissEncntr for elevator service mechanic exam (general) (routine) w/o abn findingsEncounte r [...] name Insurance type Covered libertarian ID Authorization(s) [facility] [id number] Social History Type Description Quantity Date Captured [...] Date No information Medical Equipment Description Device [place] Device Identifier Effective Dates (start - stop ) Status No information Mental Status Date Cognitive Assessment No information Health Concerns Observation Date No information Concern Status Date No information
[2018-06-16 17:07] VITALS: BP 140/64
[2018-06-16 17:56] LABS: Influenza A Molecular POSITIVE (Negative)
--- NOTE | 2018-06-16 18:11 | UC ---
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 She denies any chest pain or shortness of breath she does have a history of bronchitis and pneumonia. Eyes any nausea vomiting or diarrhea. - History of Current Complaint Chief Complaint: UCGeneralIllness Stated Complaint: SINUS CONGESTION, AND COUGH Time Seen by Provider: 06/16/18 17:57 Hx Obtained From: Patient Hx Last Menstrual Period: 01/17/18 Onset/Duration: Sudden Onset, Lasting Hours Timing: Constant Severity Initially: Mild Severity Currently: Moderate Pain Intensity: 7 Pain Scale Used: 0-10 Numeric Character: Cough: Nonproductive Aggravating Factors: Nothing Alleviating Factors: Nothing Associated Signs And Symptoms: Positive: Fever, Chills, URI, Nasal Congestion, Sinus Discomfort - Allergies/Home Medications Allergies/Adverse Reactions: Allergies Allergy/AdvReac Type Severity Reaction Status Date / Time No Known Allergies Allergy Verified 06/16/18 17:06 PMH/Surg Hx/FS Hx/Imm Hx Previously Healthy: Yes Respiratory History: Bronchitis, Pneumonia - Surgical History Surgical History: Yes Surgery Procedure, Year, and Place: eye surgery, ear tubes - Family History Known Family History: Positive: Hypertension, Diabetes - Social History Alcohol Use: Weekly Substance Use Type: None Smoking Status (MU): Never Smoked Tobacco Review of Systems All Other Systems Reviewed And Are Negative: Yes Constitutional: Positive: Fever, Chills, Fatigue Skin: Positive: Negative Eyes: Positive: Negative ENT: Positive: Negative Respiratory: Positive: Shortness Of Breath, Cough Cardiovascular: Positive: Negative Gastrointestinal: Positive: Negative Genitourinary: Positive: Negative Motor: Positive: Negative Neurovascular: Positive: Negative Musculoskeletal: Positive: Negative Neurological: Positive: Negative Psychological: Positive: Negative Physical Exam Triage Information Reviewed: Yes Appearance: Well-Appearing, No Pain Distress, Well-Nourished Vital Signs: Initial Vital Signs Temp 99.3 F 06/16/18 17:01 Pulse 79 06/16/18 17:01 Resp 20 06/16/18 17:01 BP 140/64 06/16/18 17:01 Pulse Ox 100 06/16/18 17:01 Vital Signs Reviewed: Yes Eyes: Positive: Conjunctiva Clear ENT: Positive: Hearing grossly normal, Nasal congestion, Nasal drainage, TMs normal. Negative: Tonsillar swelling, Tonsillar exudate, Trismus, Muffled voice , Hoarse voice, Sinus tenderness, Uvula midline Dental Exam: Normal Neck: Positive: Supple, Nontender, No Lymphadenopathy Respiratory: Positive: Lungs clear, Normal breath sounds, No respiratory distress, No accessory muscle use Cardiovascular: Positive: RRR, No Murmur Musculoskeletal: Positive: ROM Intact, No Edema Neurological: Positive: Alert, Muscle Tone Normal Psychological Exam: Normal Skin Exam: Normal UC Diagnostic Evaluation - Laboratory O2 Sat by Pulse Oximetry: 100 - normal/not hypoxic Diagnostic Studies Comment: influenza A + Respiratory Course/Dx - Differential Dx/Diagnosis Provider Diagnosis: Influenza A Discharge - Sign-Out/Discharge Documenting (check all that apply): Patient Departure All imaging exams completed and their final reports reviewed: No Studies - Discharge Plan Condition: Stable Disposition: HOME Prescriptions: Oseltamivir CAP* [Tamiflu CAP*] 75 mg PO BID #10 cap Patient Education Materials: Influenza (ED) Forms: *Work Release Referrals: Yon Zaragoza MD [Primary Care Provider] - Additional Instructions: rest fluids tylenol or advil for pain/fever recheck for new or worsening symptoms - Billing Disposition and Condition Condition: STABLE Disposition: Home
== END 2018-06-16 18:20 | disposition home or self-care (01) ==
LOC: UCEAST 16:54
DX: J10.1 Influenza due to other identified influenza virus with other respiratory manifestations (principal); Z87.01 Personal history of pneumonia (recurrent)
CPT/HCPCS: 99212; G0463